=== PATIENT | male | born 2005 | race Two or more races ===

== ENCOUNTER 2023-12-25 00:19 | Emergency (ER) | payer MEDICAID, OTHER ==
[~2023-12-25] VITALS: Ht 185.4 cm; Wt 77.8 kg
[2023-12-25] MEDS: LORazepam 2MG/ML-1ML VIAL IV ONE (00:45)
[2023-12-25 00:52] LABS: Basophils # (auto) 0 10 ^3/uL (0-0.2); Basophils % (auto) 0.2 % (0.0-2.0); Eosinophils # (auto) 0 10 ^3/uL (0-0.8); Hematocrit 49.5 % (41.0-53.0); Hemoglobin 17.3 g/dL (13.5-17.5); Lymphocytes # (auto) 0.9 10 ^3/uL (0.4-5.4); Lymphocytes % (auto) 7.5 % (10.0-50.0); Mean Corpuscular Hemoglobin 30.3 pg (28.0-32.0); Mean Corpuscular Volume 86.8 fL (80.0-100.0); Monocytes # (auto) 0.6 10 ^3/uL (0-1.3); Monocytes % (auto) 4.9 % (0.0-12.0); Neutrophils # (auto) 10.9 10 ^3/uL (1.6-8.6); Neutrophils % (auto) 87.4 % (37.0-80.0); Platelet Count (auto) 336 10^3/uL (140-450); Red Cell Distribution Width 14.2 % (11.8-14.3); White Blood Cell 12.4 10^3/uL (4.4-10.8)
[2023-12-25 01:07] LABS: Alanine Aminotransferase 20 U/L (7-40); Albumin 5.5 g/dL (3.2-4.8); Alkaline Phosphatase 88 U/L (46-116); Anion Gap 11 (5-15); Aspartate Aminotransferase 13 U/L (13-40); BUN/Creatinine Ratio 10.9 (10.0-20.0); Blood Urea Nitrogen 10 mg/dL (9-23); Calcium 10.4 mg/dL (8.7-10.4); Carbon Dioxide 21 mmol/L (20-31); Chloride 109 mmol/L (98-107); Glucose 121 mg/dL (74-106); Potassium 3.2 mmol/L (3.5-5.1); Sodium 141 mmol/L (136-145)
[2023-12-25] MEDS: SODIUM CHLORIDE 0.9% 1,000 ML IV ONE ×2 (02:00→02:57)
[2023-12-25 03:36] LABS: Urine Bacteria None Seen /hpf (None Seen)
[2023-12-25 03:55] LABS: Urine Blood Negative /uL (Negative); Urine Clarity Clear (Clear); Urine Color Yellow (Yellow); Urine Mucus FEW (None Seen); Urine Protein, UAD 1+ (Negative); Urine Specific Gravity 1.031 (1.001-1.035); Urine Urobilinogen 4 mg/dL (Negative); Urine WBC <1 /hpf (0 - 3)
[2023-12-25 04:17] VITALS: BP 122/79; TEMP 98.1
[2023-12-25] MEDS ORDERED: POTASSIUM EFFERVESENT TAB 25 MEQ PO ONE (05:00)
[2023-12-25] MEDS ORDERED: ATORVASTATIN 20 MG TAB PO ONE (05:00)
[2023-12-25] MEDS ORDERED: ACETAMINOPHEN 500 MG TAB PO PRN (05:00)
[2023-12-25] MEDS ORDERED: NICOTINE 14 MG/24HR TOPICAL PATCH TD SCH (05:00)
[2023-12-25 05:08] VITALS: PULSE 77; RESP 16; O2SAT 99
[2023-12-25] MEDS ORDERED: LEVALBUTEROL HCL 1.25 MG/3 ML NEB NEB SCH (05:30)
[2023-12-25] MEDS ORDERED: IPRATROPIUM BROM 0.5 MG/2.5ML INH SOL NEB PRN (05:30)
[2023-12-25 05:38] LABS: Basophils # (auto) 0 10 ^3/uL (0-0.2); Basophils % (auto) 0.3 % (0.0-2.0); Eosinophils # (auto) 0 10 ^3/uL (0-0.8); Eosinophils % (auto) 0.1 % (0.0-7.0); Hematocrit 47.8 % (41.0-53.0); Hemoglobin 16.5 g/dL (13.5-17.5); Lymphocytes # (auto) 1.2 10 ^3/uL (0.4-5.4); Lymphocytes % (auto) 13.4 % (10.0-50.0); Mean Corpuscular Hemoglobin 30.3 pg (28.0-32.0); Mean Corpuscular Hgb Conc. 34.6 g/dL (32.0-36.0); Mean Corpuscular Volume 87.7 fL (80.0-100.0); Monocytes # (auto) 0.5 10 ^3/uL (0-1.3); Monocytes % (auto) 5.2 % (0.0-12.0); Platelet Count (auto) 313 10^3/uL (140-450); Red Blood Cells 5.45 10^6/uL (4.5-5.90); Red Cell Distribution Width 14.2 % (11.8-14.3); White Blood Cell 8.7 10^3/uL (4.4-10.8)
[2023-12-25 05:51] LABS: Anion Gap 10 (5-15); Carbon Dioxide 20 mmol/L (20-31); Chloride 111 mmol/L (98-107); INR 1.25 (0.9-1.15); Partial Thromboplastin Time 27.6 SEC (24.5-34.5); Potassium 3.4 mmol/L (3.5-5.1); Sodium 141 mmol/L (136-145)
[2023-12-25 05:52] LABS: Calcium 9.8 mg/dL (8.7-10.4)
[2023-12-25 05:57] LABS: BUN/Creatinine Ratio 8.5 (10.0-20.0); Blood Urea Nitrogen 7 mg/dL (9-23); Glucose 124 mg/dL (74-106); Magnesium 2.1 mg/dL (1.6-2.6); Triglycerides 63 mg/dL (< 150)
[2023-12-25 05:58] LABS: LDL Cholesterol 93 mg/dL (< 100)
[2023-12-25 05:59] LABS: Cholesterol 148 mg/dL (< 200); HDL Cholesterol 44 mg/dL (40-59); Phosphorus 2.4 mg/dL (2.4-5.1)
[2023-12-25 10:49] LABS: Amphetamine Screen, Urine Neg (NEGATIVE); Barbiturate Scree,Urine Neg (NEGATIVE); Benzodiazephine Screen, Urine Neg (NEGATIVE); Cocaine Screen, Urine Neg (NEGATIVE)
[2023-12-25 10:51] LABS: Cannabinoid Screen, Urine Pos (NEGATIVE); Opiate Scree,Urine Neg (NEGATIVE); Phencyclidine Screen, Urine Neg (NEGATIVE)
[2023-12-25] MEDS ORDERED: DICL50TA2 PO (16:55)
[2023-12-25] MEDS ORDERED: CYCL-839 PO (16:55)
== END 2023-12-25 05:30 | disposition left against medical advice (07) ==
LOC: ER 00:19
DX: R07.9 Chest pain, unspecified (principal); F41.9 Anxiety disorder, unspecified; Z98.890 Other specified postprocedural states
CPT/HCPCS: 36415; 71045; 80048; 80053; 80061; 80307; 81001; 82306; 82607; 83036; 83735; 83880; 84100; 84443; 84484; 85025; 85610; 85730; 93005; 96360; 96361; 99285; J7030

== ENCOUNTER 2023-12-25 13:14 | Emergency (ER) | payer MEDICAID ==
[~2023-12-25] VITALS: Ht 185.4 cm; Wt 75.0 kg
[2023-12-25 13:33] LABS: Basophils # (auto) 0 10 ^3/uL (0-0.2); Basophils % (auto) 0.4 % (0.0-2.0); Eosinophils # (auto) 0 10 ^3/uL (0-0.8); Eosinophils % (auto) 0.3 % (0.0-7.0); Hematocrit 46.5 % (41.0-53.0); Hemoglobin 16.1 g/dL (13.5-17.5); Lymphocytes # (auto) 1.7 10 ^3/uL (0.4-5.4); Lymphocytes % (auto) 24.2 % (10.0-50.0); Mean Corpuscular Hemoglobin 30.2 pg (28.0-32.0); Mean Corpuscular Hgb Conc. 34.5 g/dL (32.0-36.0); Mean Corpuscular Volume 87.5 fL (80.0-100.0); Monocytes # (auto) 0.5 10 ^3/uL (0-1.3); Neutrophils # (auto) 4.7 10 ^3/uL (1.6-8.6); Neutrophils % (auto) 68.1 % (37.0-80.0); Nucleated Red Blood Cells % 0.1 %; Platelet Count (auto) 284 10^3/uL (140-450); Red Blood Cells 5.31 10^6/uL (4.5-5.90); White Blood Cell 6.9 10^3/uL (4.4-10.8)
[2023-12-25 13:51] LABS: Alanine Aminotransferase 18 U/L (7-40); Albumin 4.8 g/dL (3.2-4.8); Alkaline Phosphatase 78 U/L (46-116); Anion Gap 9 (5-15); Aspartate Aminotransferase 10 U/L (13-40); BUN/Creatinine Ratio 6.7 (10.0-20.0); Bilirubin, Total 1.5 mg/dL (0.2-1.0); Blood Urea Nitrogen < 5 mg/dL (9-23); Calcium 10.1 mg/dL (8.7-10.4); Carbon Dioxide 20 mmol/L (20-31); Chloride 112 mmol/L (98-107); Glucose 98 mg/dL (74-106); Potassium 3.2 mmol/L (3.5-5.1); Sodium 141 mmol/L (136-145); Total Protein 7.2 g/dL (5.7-8.2)
[2023-12-25 15:10] VITALS: PULSE 78; RESP 16; O2SAT 98
[2023-12-25] MEDS: KETOROLAC TROMETH 30 MG/ML 1ML VIAL IV ONE (15:19)
[2023-12-25] MEDS: SODIUM CHLORIDE 0.9% 1,000 ML IVB ONE (15:19)
[2023-12-25] MEDS: SODIUM CHLORIDE 0.9% 1,000 ML IV ONE (15:19)
[2023-12-25] MEDS ORDERED: CYCL-839 PO (16:55)
[2023-12-25] MEDS ORDERED: DICL50TA2 PO (16:55)
[2023-12-25] MEDS: POTASSIUM EFFERVESENT TAB 25 MEQ PO ONE (17:27)
[2023-12-25 18:12] LABS: Urine Bacteria None Seen /hpf (None Seen)
[2023-12-25 18:29] LABS: Urine Blood Negative /uL (Negative); Urine Clarity Clear (Clear); Urine Color Yellow (Yellow); Urine Mucus FEW (None Seen); Urine Protein, UAD TRACE (Negative); Urine Specific Gravity 1.021 (1.001-1.035); Urine Urobilinogen 3 mg/dL (Negative); Urine WBC 1 /hpf (0 - 3)
[2023-12-25 18:38] LABS: Amphetamine Screen, Urine Neg (NEGATIVE); Barbiturate Scree,Urine Neg (NEGATIVE); Benzodiazephine Screen, Urine Neg (NEGATIVE); Cocaine Screen, Urine Neg (NEGATIVE); Opiate Scree,Urine Neg (NEGATIVE); Phencyclidine Screen, Urine Neg (NEGATIVE)
[2023-12-25 18:39] LABS: Cannabinoid Screen, Urine Pos (NEGATIVE)
[2023-12-25 18:55] VITALS: BP 141/98; PULSE 65; RESP 17; TEMP 97.8; O2SAT 98
== END 2023-12-25 18:58 | disposition home or self-care (01) ==
LOC: ER 13:14
DX: R07.89 Other chest pain (principal); E87.6 Hypokalemia; M62.838 Other muscle spasm; F12.10 Cannabis abuse, uncomplicated; F17.290 Nicotine dependence, other tobacco product, uncomplicated; Z79.899 Other long term (current) drug therapy; X58.XXXA Exposure to other specified factors, initial encounter; Y93.89 Activity, other specified; Y92.009 Unspecified place in unspecified non-institutional (private) residence as the place of occurrence of the external cause; Y99.8 Other external cause status
CPT/HCPCS: 36415; 71046; 72040; 80053; 80307; 81001; 83735; 84484; 85025; 93005; 96361; 96374; 99285; J1885; J7030

== ENCOUNTER 2023-12-27 20:16 | Emergency (ER) | payer MEDICAID ==
[~2023-12-27] VITALS: Ht 185.4 cm; Wt 76.8 kg
[~2023-12-27 20:16] MED LIST: CYCL-839 PO; DICL50TA2 PO
[2023-12-27] MEDS ORDERED: NITROGLYCERIN 0.4 MG SL TAB SL ONE (20:45)
[2023-12-27 20:46] LABS: Basophils # (auto) 0.1 10 ^3/uL (0-0.2); Basophils % (auto) 0.6 % (0.0-2.0); Eosinophils # (auto) 0 10 ^3/uL (0-0.8); Eosinophils % (auto) 0.1 % (0.0-7.0); Hematocrit 46.5 % (41.0-53.0); Hemoglobin 16.1 g/dL (13.5-17.5); Lymphocytes # (auto) 1.9 10 ^3/uL (0.4-5.4); Lymphocytes % (auto) 23.1 % (10.0-50.0); Mean Corpuscular Hemoglobin 30.1 pg (28.0-32.0); Mean Corpuscular Hgb Conc. 34.6 g/dL (32.0-36.0); Mean Corpuscular Volume 87.1 fL (80.0-100.0); Monocytes # (auto) 0.8 10 ^3/uL (0-1.3); Monocytes % (auto) 10.2 % (0.0-12.0); Neutrophils # (auto) 5.4 10 ^3/uL (1.6-8.6); Nucleated Red Blood Cells % 0.2 %; Platelet Count (auto) 307 10^3/uL (140-450); Red Blood Cells 5.34 10^6/uL (4.5-5.90); Red Cell Distribution Width 14.2 % (11.8-14.3); White Blood Cell 8.2 10^3/uL (4.4-10.8)
[2023-12-27 20:58] LABS: Alanine Aminotransferase 19 U/L (7-40); Albumin 4.9 g/dL (3.2-4.8); Alkaline Phosphatase 81 U/L (46-116); Anion Gap 8 (5-15); Aspartate Aminotransferase < 8 U/L (13-40); BUN/Creatinine Ratio 8.8 (10.0-20.0); Bilirubin, Total 0.8 mg/dL (0.2-1.0); Blood Urea Nitrogen 9 mg/dL (9-23); Calcium 10.4 mg/dL (8.7-10.4); Carbon Dioxide 24 mmol/L (20-31); Chloride 112 mmol/L (98-107); Glucose 100 mg/dL (74-106); INR 1.19 (0.9-1.15); Magnesium 2.2 mg/dL (1.6-2.6); Partial Thromboplastin Time 26.3 SEC (24.5-34.5); Potassium 3.3 mmol/L (3.5-5.1); Prothrombin Time 12.5 sec (9.3-11.8); Sodium 144 mmol/L (136-145)
[2023-12-27 20:59] LABS: Total Protein 7.4 g/dL (5.7-8.2)
[2023-12-27 21:36] LABS: Amphetamine Screen, Urine Neg (NEGATIVE); Barbiturate Scree,Urine Neg (NEGATIVE); Benzodiazephine Screen, Urine Neg (NEGATIVE); Cannabinoid Screen, Urine Pos (NEGATIVE); Cocaine Screen, Urine Neg (NEGATIVE); Opiate Scree,Urine Neg (NEGATIVE); Phencyclidine Screen, Urine Neg (NEGATIVE)
[2023-12-27 22:40] VITALS: BP 136/76; PULSE 66; RESP 12; TEMP 98.2; O2SAT 99
== END 2023-12-27 22:55 | disposition home or self-care (01) ==
LOC: ER 20:16
DX: R07.89 Other chest pain (principal); R00.2 Palpitations; F41.9 Anxiety disorder, unspecified; F15.90 Other stimulant use, unspecified, uncomplicated; Z87.891 Personal history of nicotine dependence; Z79.899 Other long term (current) drug therapy
CPT/HCPCS: 36415; 71045; 80053; 80307; 83735; 83880; 84443; 84484; 85025; 85379; 85610; 85730; 93005